=== PATIENT | female | born 1955 ===

== ENCOUNTER 2021-10-23 15:58 | Observation (INO) ==
[2021-10-23] MEDS ORDERED: GLUCAGON 1 MG VIAL IM PRN ×2 (18:38)
[2021-10-23] MEDS ORDERED: ONDANSETRON 4 MG/2 ML VIAL IV PRN (18:38)
[2021-10-23] MEDS ORDERED: DEXTROSE 50% 25 GM/50 ML VIAL IV PRN (18:38)
[2021-10-23] MEDS ORDERED: DEXTROSE 10% 250 ML BAG IV PRN (20:33)
[2021-10-23] MEDS: INSULIN NPH/REGULAR 70/30 100 UNIT/ML SUBCUT SCH (23:42)
[2021-10-24] MEDS: FERROUS SULFATE 325 MG TABLET PO SCH ×3 (00:06→21:29)
[2021-10-24] MEDS: ENOXAPARIN 40 MG/0.4 ML SYRINGE SUBCUT SCH ×2 (00:06→21:30)
[2021-10-24] MEDS: SODIUM CHLORIDE 0.9% 1,000 ML IV SCH ×3 (00:06→18:49)
[2021-10-24] MEDS: SIMVASTATIN 10 MG TABLET PO SCH ×2 (00:06→21:28)
[2021-10-24] MEDS: GABAPENTIN 400 MG CAPSULE PO SCH ×4 (00:06→21:29)
[2021-10-24] MEDS: CALCIUM (CARBONATE) 500 MG TABLET PO SCH ×3 (00:07→21:29)
[2021-10-24] MEDS: MUPIROCIN 2% OINT 22 GM TUBE TOP SCH ×3 (00:07→21:30)
[2021-10-24] MEDS: MONTELUKAST 10 MG TABLET PO SCH ×2 (00:07→21:29)
[2021-10-24 05:15] LABS: Basophils % 0.6 % (0.0-0.8); Eosinophils # 0.4 10*3/uL (0.0-0.87); Eosinophils % 5.5 % (0.00-10.9); Hematocrit 29.4 VOL% (35.7-47.0); Hemoglobin 9.6 GM/DL (12.0-16.0); Immature Granulocytes % 0.4 %; Immature Granulocytes Absolute 0.03 #; Lymphocytes # 1.5 10*3/uL (1.4-4.0); Lymphocytes % 22.3 % (21.3-54.2); Mean Corpuscular HGB Conc 32.7 GM/DL (32-36); Mean Corpuscular Volume 95.5 FL (87-102); Mean Platelet Volume 10.3 FL (9.6-12.0); Monocytes % 10.5 % (1.7-12.7); Neutrophils % 60.7 % (38.7-73.9); Platelet Count 207 T/CUMM (130-400); Red Blood Count 3.08 MC/CUMM (3.8-5.5); Red Cell Distribution Width 11.6 % (9.3-17.3); White Blood Count 6.9 T/CUMM (4-12)
[2021-10-24 05:55] LABS: Alanine Aminotransferase 22 U/L (13-56); Albumin 2.7 G/DL (3.4-5.0); Alkaline Phosphatase 93 U/L (45-117); Aspartate Amino Transferase 17 U/L (0-37); Bilirubin,Total < 0.39 MG/DL (0.20-1.00); Blood Urea Nitrogen 20 MG/DL (7-18); Calcium 8.2 MG/DL (8.5-10.1); Carbon Dioxide 26 MMOL/L (21-32); Estimated Glom Filtration Rate 60 ML/MIN; Glucose 177 MG/DL (74-106); HDL Cholesterol 49 MG/DL (40-60); Osmolality,Calculated 274.2 MOS/KG (273-304); Potassium 5.9 MMOL/L (3.5-5.1); Risk Ratio 2.53; Sodium 134 MMOL/L (136-145); Triglycerides 110 MG/DL (2-150)
[2021-10-24] MEDS: LEVOTHYROXINE 25 MCG TABLET PO SCH (06:07)
[2021-10-24] MEDS ORDERED: SODIUM POLYSTYRENE SULFATE 15 GM/60 ML BOTTLE PO ONE ×2 (08:27→16:30)
[2021-10-24] MEDS ORDERED: ERGOCALCIFEROL 50,000 UNIT CAPSULE PO SCH (09:00)
[2021-10-24] MEDS ORDERED: LOSARTAN 50 MG TABLET PO SCH (09:00)
[2021-10-24] MEDS ORDERED: amLODIPine 2.5 MG TABLET PO SCH (09:00)
[2021-10-24] MEDS ORDERED: SPIRONOLACTONE 25 MG TABLET PO SCH (09:00)
[2021-10-24] MEDS ORDERED: FUROSEMIDE 40 MG TABLET PO SCH (09:00)
[2021-10-24] MEDS ORDERED: DULoxetine 30 MG CAPSULE PO SCH (09:00)
[2021-10-24] MEDS ORDERED: glipiZIDE 5 MG TABLET PO SCH (09:00)
[2021-10-24] MEDS: MULTIVITAMIN (CENTRUM) TABLET PO SCH (10:36)
[2021-10-24] MEDS: ASPIRIN EC 81 MG TABLET PO SCH (10:36)
[2021-10-24] MEDS: DOXAZOSIN 1 MG TABLET PO SCH (10:37)
[2021-10-24] MEDS: HYDROXYCHLOROQUINE 200 MG TABLET PO SCH (10:37)
[2021-10-24] MEDS: CLOPIDOGREL 75 MG TABLET PO SCH (10:37)
[2021-10-24] MEDS: OMEGA 3 ACID ETHYL ESTERS 1 GM CAPSULE PO SCH (10:45)
[2021-10-24] MEDS: INSULIN NPH/REGULAR 70/30 100 UNIT/ML SUBCUT SCH (10:58)
[2021-10-24] MEDS ORDERED: hydrALAZINE 20 MG/1 ML VIAL IV PRN (11:13)
[2021-10-24 11:17] LABS: % Iron Saturation 24.7 % (18-50)
[2021-10-24] MEDS: INSULIN LISPRO 100 UNIT/ML SUBCUT SCH ×3 (12:38→21:30)
[2021-10-24] MEDS: PANTOPRAZOLE 40 MG TABLET PO SCH (15:38)
[2021-10-24] MEDS ORDERED: INSULIN NPH/REGULAR 70/30 100 UNIT/ML SUBCUT SCH (17:00)
[2021-10-25] MEDS: LEVOTHYROXINE 25 MCG TABLET PO SCH (05:29)
[2021-10-25 05:41] LABS: Basophils % 0.5 % (0.0-0.8); Eosinophils # 0.4 10*3/uL (0.0-0.87); Eosinophils % 4.6 % (0.00-10.9); Hematocrit 29.6 VOL% (35.7-47.0); Hemoglobin 9.8 GM/DL (12.0-16.0); Immature Granulocytes % 0.2 %; Immature Granulocytes Absolute 0.02 #; Lymphocytes # 1.4 10*3/uL (1.4-4.0); Lymphocytes % 17.1 % (21.3-54.2); Mean Corpuscular HGB Conc 33.1 GM/DL (32-36); Mean Corpuscular Volume 94.3 FL (87-102); Mean Platelet Volume 9.6 FL (9.6-12.0); Monocytes % 9.7 % (1.7-12.7); Neutrophils % 67.9 % (38.7-73.9); Platelet Count 239 T/CUMM (130-400); Red Blood Count 3.14 MC/CUMM (3.8-5.5); Red Cell Distribution Width 11.6 % (9.3-17.3); White Blood Count 8.4 T/CUMM (4-12)
[2021-10-25 05:56] LABS: Bilirubin,Total 0.4 MG/DL (0.20-1.00); Calcium 8.1 MG/DL (8.5-10.1); Osmolality,Calculated 275.1 MOS/KG (273-304); Total Protein 6.3 G/DL (6.4-8.2)
[2021-10-25 06:03] LABS: Ferritin 215.5 ng/mL (8-252)
[2021-10-25] MEDS: INSULIN LISPRO 100 UNIT/ML SUBCUT SCH ×4 (07:30→21:22)
[2021-10-25] MEDS: SODIUM CHLORIDE 0.9% 1,000 ML IV SCH ×2 (07:35→21:24)
[2021-10-25] MEDS: MUPIROCIN 2% OINT 22 GM TUBE TOP SCH ×3 (09:00→21:23)
[2021-10-25] MEDS ORDERED: PNEUMOCOCCAL VACCINE (13 VALENT) 0.5 ML SYRINGE IM ONE (09:00)
[2021-10-25] MEDS: FERROUS SULFATE 325 MG TABLET PO SCH ×2 (13:09→21:19)
[2021-10-25] MEDS: CALCIUM (CARBONATE) 500 MG TABLET PO SCH ×2 (13:09→21:19)
[2021-10-25] MEDS: GABAPENTIN 400 MG CAPSULE PO SCH ×3 (13:09→21:19)
[2021-10-25] MEDS ORDERED: MORPHINE 4 MG/1 ML VIAL IV PRN (15:16)
[2021-10-25] MEDS: PANTOPRAZOLE 40 MG TABLET PO SCH (15:30)
[2021-10-25] MEDS: CLOPIDOGREL 75 MG TABLET PO SCH (15:30)
[2021-10-25] MEDS: ASPIRIN EC 81 MG TABLET PO SCH (15:30)
[2021-10-25] MEDS: HYDROXYCHLOROQUINE 200 MG TABLET PO SCH (15:30)
[2021-10-25] MEDS: amLODIPine 5 MG TABLET PO SCH (15:30)
[2021-10-25] MEDS: OMEGA 3 ACID ETHYL ESTERS 1 GM CAPSULE PO SCH (15:30)
[2021-10-25] MEDS: MULTIVITAMIN (CENTRUM) TABLET PO SCH (15:30)
[2021-10-25] MEDS: DOXAZOSIN 1 MG TABLET PO SCH (15:30)
[2021-10-25] MEDS: SIMVASTATIN 10 MG TABLET PO SCH (21:19)
[2021-10-25] MEDS: ENOXAPARIN 40 MG/0.4 ML SYRINGE SUBCUT SCH (21:20)
[2021-10-25] MEDS: DULoxetine 30 MG CAPSULE PO SCH (21:20)
[2021-10-25] MEDS: MONTELUKAST 10 MG TABLET PO SCH (21:20)
[2021-10-26 05:15] LABS: Basophils % 0.2 % (0.0-0.8); Eosinophils # 0.1 10*3/uL (0.0-0.87); Eosinophils % 0.6 % (0.00-10.9); Hematocrit 29.9 VOL% (35.7-47.0); Hemoglobin 9.7 GM/DL (12.0-16.0); Immature Granulocytes % 0.5 %; Immature Granulocytes Absolute 0.05 #; Lymphocytes # 1.1 10*3/uL (1.4-4.0); Lymphocytes % 11.5 % (21.3-54.2); Mean Corpuscular HGB Conc 32.4 GM/DL (32-36); Mean Corpuscular Volume 94.9 FL (87-102); Monocytes % 8.4 % (1.7-12.7); Neutrophils % 78.8 % (38.7-73.9); Platelet Count 228 T/CUMM (130-400); Red Blood Count 3.15 MC/CUMM (3.8-5.5); Red Cell Distribution Width 11.4 % (9.3-17.3); White Blood Count 9.5 T/CUMM (4-12)
[2021-10-26] MEDS: LEVOTHYROXINE 25 MCG TABLET PO SCH (05:40)
[2021-10-26 05:50] LABS: Calcium 7.9 MG/DL (8.5-10.1); Osmolality,Calculated 274.1 MOS/KG (273-304); Potassium 4.3 MMOL/L (3.5-5.1)
[2021-10-26] MEDS ORDERED: MAGNESIUM SULF RIDER 2 GM/50 ML PREMIX IV ONE (07:41)
[2021-10-26] MEDS: INSULIN LISPRO 100 UNIT/ML SUBCUT SCH ×4 (09:44→20:55)
[2021-10-26] MEDS: MULTIVITAMIN (CENTRUM) TABLET PO SCH (12:57)
[2021-10-26] MEDS: HYDROXYCHLOROQUINE 200 MG TABLET PO SCH (12:58)
[2021-10-26] MEDS: amLODIPine 5 MG TABLET PO SCH (12:58)
[2021-10-26] MEDS: CALCIUM (CARBONATE) 500 MG TABLET PO SCH ×2 (12:58→20:53)
[2021-10-26] MEDS: OMEGA 3 ACID ETHYL ESTERS 1 GM CAPSULE PO SCH (12:58)
[2021-10-26] MEDS: GABAPENTIN 400 MG CAPSULE PO SCH ×3 (12:58→20:53)
[2021-10-26] MEDS: DOXAZOSIN 1 MG TABLET PO SCH (12:59)
[2021-10-26] MEDS: FERROUS SULFATE 325 MG TABLET PO SCH ×2 (13:01→20:53)
[2021-10-26] MEDS: MUPIROCIN 2% OINT 22 GM TUBE TOP SCH ×3 (13:02→21:50)
[2021-10-26] MEDS: CLOPIDOGREL 75 MG TABLET PO SCH (13:03)
[2021-10-26] MEDS: ASPIRIN EC 81 MG TABLET PO SCH (13:04)
[2021-10-26] MEDS: PANTOPRAZOLE 40 MG TABLET PO SCH (15:33)
[2021-10-26] MEDS: SIMVASTATIN 10 MG TABLET PO SCH (20:53)
[2021-10-26] MEDS: DULoxetine 30 MG CAPSULE PO SCH (20:53)
[2021-10-26] MEDS: MONTELUKAST 10 MG TABLET PO SCH (20:53)
[2021-10-26] MEDS: ENOXAPARIN 40 MG/0.4 ML SYRINGE SUBCUT SCH (20:54)
[2021-10-26] MEDS ORDERED: INSULIN GLARGINE 100 UNIT/ML SUBCUT SCH (21:00)
[2021-10-26] MEDS: ACETAMINOPHEN 325 MG TABLET PO PRN (21:02)
[2021-10-27] MEDS: LEVOTHYROXINE 25 MCG TABLET PO SCH (05:53)
[2021-10-27] MEDS: ACETAMINOPHEN 325 MG TABLET PO PRN (05:53)
[2021-10-27] MEDS: INSULIN LISPRO 100 UNIT/ML SUBCUT SCH ×2 (09:22→12:24)
[2021-10-27] MEDS: DOXAZOSIN 1 MG TABLET PO SCH (09:23)
[2021-10-27] MEDS: MULTIVITAMIN (CENTRUM) TABLET PO SCH (09:23)
[2021-10-27] MEDS: amLODIPine 5 MG TABLET PO SCH (09:24)
[2021-10-27] MEDS: FERROUS SULFATE 325 MG TABLET PO SCH (09:24)
[2021-10-27] MEDS: GABAPENTIN 400 MG CAPSULE PO SCH (09:24)
[2021-10-27] MEDS: ASPIRIN EC 81 MG TABLET PO SCH (09:24)
[2021-10-27 09:41] LABS: Calcium 8.2 MG/DL (8.5-10.1); Osmolality,Calculated 270.7 MOS/KG (273-304); Potassium 4.8 MMOL/L (3.5-5.1)
[2021-10-27] MEDS: OMEGA 3 ACID ETHYL ESTERS 1 GM CAPSULE PO SCH (09:42)
[2021-10-27] MEDS: CLOPIDOGREL 75 MG TABLET PO SCH (09:42)
[2021-10-27] MEDS: CALCIUM (CARBONATE) 500 MG TABLET PO SCH (09:42)
[2021-10-27] MEDS: HYDROXYCHLOROQUINE 200 MG TABLET PO SCH (09:43)
[2021-10-27 12:44] VITALS: BP 144/52
== END 2021-10-27 14:48 | disposition home or self-care (01) ==
LOC: N.ED 15:58 → N.EDINP 15:58 → SUATTDRO 18:38 → N.5E 20:52
PROVIDERS: ADMIT Internal Medicine; ATTEND Phlebology

== ENCOUNTER 2021-11-01 13:22 | Inpatient (IN) ==
[2021-11-01] MEDS ORDERED: PIPERACILLIN/TAZOBACTAM 3,375 MG in SODIUM CHLORIDE 0.9% 100 ML IV STA (15:01)
[2021-11-01] MEDS ORDERED: VANCOMYCIN INJ 1,000 MG in SODIUM CHLORIDE 0.9% 250 ML IV STA (15:09)
[2021-11-01 16:04] LABS: Basophils # 0.1 10*3/uL (0.0-0.2); Basophils % 0.6 % (0.0-0.8); Eosinophils # 0.4 10*3/uL (0.0-0.87); Eosinophils % 4.6 % (0.00-10.9); Hematocrit 29.6 VOL% (35.7-47.0); Hemoglobin 9.7 GM/DL (12.0-16.0); Immature Granulocytes % 0.5 %; Immature Granulocytes Absolute 0.04 #; Lymphocytes # 1.6 10*3/uL (1.4-4.0); Lymphocytes % 18.5 % (21.3-54.2); Mean Corpuscular HGB Conc 32.8 GM/DL (32-36); Mean Corpuscular Volume 95.5 FL (87-102); Mean Platelet Volume 9.8 FL (9.6-12.0); Monocytes % 7.6 % (1.7-12.7); Neutrophils % 68.2 % (38.7-73.9); Platelet Count 290 T/CUMM (130-400); Red Cell Distribution Width 11.7 % (9.3-17.3); White Blood Count 8.4 T/CUMM (4-12)
[2021-11-01] MEDS ORDERED: GLUCAGON 1 MG VIAL IM PRN (16:18)
[2021-11-01] MEDS ORDERED: DEXTROSE 10% 250 ML BAG IV PRN (16:20)
[2021-11-01] MEDS ORDERED: ACETAMINOPHEN 325 MG TABLET PO PRN (16:22)
[2021-11-01] MEDS ORDERED: DEXTROSE 50% 25 GM/50 ML VIAL IV PRN (16:22)
[2021-11-01] MEDS ORDERED: ONDANSETRON 4 MG/2 ML VIAL IV PRN (16:22)
[2021-11-01 16:26] LABS: Alanine Aminotransferase 25 U/L (13-56); Albumin 2.8 G/DL (3.4-5.0); Alkaline Phosphatase 114 U/L (45-117); Aspartate Amino Transferase 14 U/L (0-37); Bilirubin,Total < 0.39 MG/DL (0.20-1.00); Blood Urea Nitrogen 14 MG/DL (7-18); Calcium 8.3 MG/DL (8.5-10.1); Carbon Dioxide 27 MMOL/L (21-32); Estimated Glom Filtration Rate 60 ML/MIN; Glucose 150 MG/DL (74-106); Potassium 4.2 MMOL/L (3.5-5.1); Sodium 136 MMOL/L (136-145)
[2021-11-01 16:32] LABS: INR 0.9; PT Patient Result 10.7 SECS (10.5-12.0); Partial Thromboplastin Time 30.5 SECS (23.8-32.1)
[2021-11-01] MEDS: INSULIN REGULAR 100 UNIT/ML SUBCUT SCH ×2 (17:45→23:20)
[2021-11-01] MEDS: PIPERACILLIN/TAZOBACTAM 3,375 MG in SODIUM CHLORIDE 0.9% 100 ML IV SCH (23:20)
[2021-11-02] MEDS ORDERED: VANCOMYCIN INJ 1,500 MG in SODIUM CHLORIDE 0.9% 500 ML IV SCH ×2 (04:00→21:00)
[2021-11-02 05:03] LABS: Basophils % 0.5 % (0.0-0.8); Eosinophils # 0.5 10*3/uL (0.0-0.87); Eosinophils % 5.6 % (0.00-10.9); Hematocrit 28.3 VOL% (35.7-47.0); Hemoglobin 9.5 GM/DL (12.0-16.0); Immature Granulocytes % 0.4 %; Immature Granulocytes Absolute 0.03 #; Lymphocytes # 1.4 10*3/uL (1.4-4.0); Lymphocytes % 17.1 % (21.3-54.2); Mean Corpuscular HGB Conc 33.6 GM/DL (32-36); Mean Corpuscular Volume 94.6 FL (87-102); Mean Platelet Volume 9.9 FL (9.6-12.0); Monocytes % 9.7 % (1.7-12.7); Neutrophils % 66.7 % (38.7-73.9); Platelet Count 293 T/CUMM (130-400); Red Blood Count 2.99 MC/CUMM (3.8-5.5); Red Cell Distribution Width 11.6 % (9.3-17.3); White Blood Count 8.1 T/CUMM (4-12)
[2021-11-02 05:26] LABS: Albumin 2.6 G/DL (3.4-5.0); Bilirubin,Total 1.4 MG/DL (0.20-1.00); Calcium 8.4 MG/DL (8.5-10.1); Potassium 5.1 MMOL/L (3.5-5.1); Total Protein 6.5 G/DL (6.4-8.2)
[2021-11-02] MEDS ORDERED: LACTATED RINGERS 1,000 ML IV SCH (08:00)
[2021-11-02] MEDS ORDERED: propofoL 200 MG/20 ML VIAL IV ONE (08:08)
[2021-11-02] MEDS ORDERED: ETOMIDATE 40 MG/20 ML VIAL IV ONE (08:08)
[2021-11-02] MEDS ORDERED: LIDOCAINE 2% 5 ML VIAL ONE (08:08)
[2021-11-02] MEDS ORDERED: PHENYLEPHRINE 1 MG/10 ML SYRINGE IV ONE (08:08)
[2021-11-02] MEDS ORDERED: fentaNYL 100 MCG/2 ML VIAL ONE (08:08)
[2021-11-02] MEDS ORDERED: SEVOFLURANE 1 UNIT/15 MINUTE INH ONE (08:08)
[2021-11-02] MEDS ORDERED: ONDANSETRON 4 MG/2 ML VIAL ONE (08:09)
[2021-11-02] MEDS ORDERED: LIDOCAINE 1%/EPI INJ 20 ML VIAL ONE (08:16)
[2021-11-02] MEDS ORDERED: BUPIVACAINE MPF 0.25% 30 ML VIAL ONE (08:16)
[2021-11-02] MEDS: INSULIN REGULAR 100 UNIT/ML SUBCUT SCH ×4 (08:18→20:54)
[2021-11-02] MEDS ORDERED: ONDANSETRON 4 MG/2 ML VIAL IV PRN (09:15)
[2021-11-02] MEDS: HYDROmorphone 1 MG/1 ML SYRINGE IV PRN ×2 (09:15→09:20)
[2021-11-02] MEDS ORDERED: HYDROmorphone 1 MG/1 ML SYRINGE ONE (09:16)
[2021-11-02] MEDS ORDERED: HYDROmorphone 1 MG/1 ML SYRINGE IV PRN (10:51)
[2021-11-02] MEDS: PANTOPRAZOLE 40 MG TABLET PO SCH (11:29)
[2021-11-02] MEDS: PIPERACILLIN/TAZOBACTAM 3,375 MG in SODIUM CHLORIDE 0.9% 100 ML IV SCH ×3 (11:30→23:15)
[2021-11-02] MEDS ORDERED: SPIRONOLACTONE 25 MG TABLET PO SCH (11:30)
[2021-11-02] MEDS: DOXAZOSIN 1 MG TABLET PO SCH (13:35)
[2021-11-02] MEDS: amLODIPine 10 MG TABLET PO SCH (13:35)
[2021-11-02] MEDS: ASPIRIN EC 81 MG TABLET PO SCH (13:35)
[2021-11-02] MEDS: GABAPENTIN 400 MG CAPSULE PO SCH ×2 (16:34→20:53)
[2021-11-02] MEDS: HYDROXYCHLOROQUINE 200 MG TABLET PO SCH (16:34)
[2021-11-02] MEDS: OMEGA 3 ACID ETHYL ESTERS 1 GM CAPSULE PO SCH (16:34)
[2021-11-02] MEDS: FERROUS SULFATE 325 MG TABLET PO SCH (16:34)
[2021-11-02] MEDS: DOCUSATE SODIUM 100 MG CAPSULE PO SCH (16:34)
[2021-11-02] MEDS: MONTELUKAST 10 MG TABLET PO SCH (20:52)
[2021-11-02] MEDS: CALCIUM (CARBONATE) 500 MG TABLET PO SCH (20:52)
[2021-11-02] MEDS: SIMVASTATIN 10 MG TABLET PO SCH (20:53)
[2021-11-02] MEDS ORDERED: DULoxetine 30 MG CAPSULE PO SCH (21:00)
[2021-11-03] MEDS: INSULIN REGULAR 100 UNIT/ML SUBCUT SCH ×5 (01:45→20:28)
[2021-11-03] MEDS: LEVOTHYROXINE 25 MCG TABLET PO SCH (06:13)
[2021-11-03 06:28] LABS: Basophils % 0.5 % (0.0-0.8); Eosinophils # 0.5 10*3/uL (0.0-0.87); Eosinophils % 6.4 % (0.00-10.9); Hematocrit 29.2 VOL% (35.7-47.0); Hemoglobin 9.4 GM/DL (12.0-16.0); Immature Granulocytes % 0.6 %; Immature Granulocytes Absolute 0.05 #; Lymphocytes # 1.9 10*3/uL (1.4-4.0); Lymphocytes % 22.9 % (21.3-54.2); Mean Corpuscular HGB Conc 32.2 GM/DL (32-36); Mean Corpuscular Volume 96.1 FL (87-102); Mean Platelet Volume 9.8 FL (9.6-12.0); Monocytes % 11.8 % (1.7-12.7); Neutrophils % 57.8 % (38.7-73.9); Platelet Count 319 T/CUMM (130-400); Red Blood Count 3.04 MC/CUMM (3.8-5.5); Red Cell Distribution Width 11.7 % (9.3-17.3); White Blood Count 8.5 T/CUMM (4-12)
[2021-11-03 07:07] LABS: Albumin 2.8 G/DL (3.4-5.0); Bilirubin,Total 0.7 MG/DL (0.20-1.00); Calcium 8.6 MG/DL (8.5-10.1); Osmolality,Calculated 269.4 MOS/KG (273-304); Potassium 5.7 MMOL/L (3.5-5.1); Total Protein 6.9 G/DL (6.4-8.2)
[2021-11-03] MEDS: GABAPENTIN 400 MG CAPSULE PO SCH ×3 (08:35→20:28)
[2021-11-03] MEDS: MULTIVITAMIN (CENTRUM) TABLET PO SCH (08:35)
[2021-11-03] MEDS: ASPIRIN EC 81 MG TABLET PO SCH (08:35)
[2021-11-03] MEDS: CALCIUM (CARBONATE) 500 MG TABLET PO SCH ×2 (08:35→20:28)
[2021-11-03] MEDS: DOXAZOSIN 1 MG TABLET PO SCH (08:35)
[2021-11-03] MEDS: FERROUS SULFATE 325 MG TABLET PO SCH ×2 (08:36→17:55)
[2021-11-03] MEDS: PANTOPRAZOLE 40 MG TABLET PO SCH (08:36)
[2021-11-03] MEDS: HYDROXYCHLOROQUINE 200 MG TABLET PO SCH (08:36)
[2021-11-03] MEDS: DOCUSATE SODIUM 100 MG CAPSULE PO SCH (08:36)
[2021-11-03] MEDS: CLOPIDOGREL 75 MG TABLET PO SCH (08:36)
[2021-11-03] MEDS: amLODIPine 10 MG TABLET PO SCH (08:36)
[2021-11-03] MEDS: PIPERACILLIN/TAZOBACTAM 3,375 MG in SODIUM CHLORIDE 0.9% 100 ML IV SCH (08:37)
[2021-11-03] MEDS: OMEGA 3 ACID ETHYL ESTERS 1 GM CAPSULE PO SCH (08:41)
[2021-11-03] MEDS ORDERED: FUROSEMIDE 40 MG TABLET PO SCH (09:00)
[2021-11-03] MEDS ORDERED: SODIUM POLYSTYRENE SULFATE 15 GM/60 ML BOTTLE PO STA (10:31)
[2021-11-03] MEDS: SODIUM CHLORIDE 0.9% 1,000 ML IV SCH (13:45)
[2021-11-03] MEDS: POLYETHYLENE GLYCOL POWDER 17 GM PACK PO SCH (13:45)
[2021-11-03] MEDS: cefTRIAXone 1,000 MG in SODIUM CHLORIDE 0.9% 100 ML IV SCH (13:45)
[2021-11-03] MEDS: LINEZOLID INJ 600 MG/300 ML PREMIX IV SCH ×2 (16:54→23:49)
[2021-11-03] MEDS: SIMVASTATIN 10 MG TABLET PO SCH (20:29)
[2021-11-03] MEDS: MONTELUKAST 10 MG TABLET PO SCH (20:29)
[2021-11-04 04:46] LABS: Basophils % 0.3 % (0.0-0.8); Eosinophils # 0.4 10*3/uL (0.0-0.87); Eosinophils % 6.7 % (0.00-10.9); Hematocrit 26.4 VOL% (35.7-47.0); Hemoglobin 8.7 GM/DL (12.0-16.0); Immature Granulocytes % 0.8 %; Immature Granulocytes Absolute 0.05 #; Lymphocytes % 16.9 % (21.3-54.2); Mean Corpuscular Volume 94.6 FL (87-102); Mean Platelet Volume 9.8 FL (9.6-12.0); Monocytes % 8.9 % (1.7-12.7); Neutrophils % 66.4 % (38.7-73.9); Platelet Count 278 T/CUMM (130-400); Red Blood Count 2.79 MC/CUMM (3.8-5.5); Red Cell Distribution Width 11.3 % (9.3-17.3); White Blood Count 6.2 T/CUMM (4-12)
[2021-11-04 05:08] LABS: Albumin 2.5 G/DL (3.4-5.0); Bilirubin,Total 0.5 MG/DL (0.20-1.00); Calcium 8.3 MG/DL (8.5-10.1); Osmolality,Calculated 274.5 MOS/KG (273-304); Potassium 4.5 MMOL/L (3.5-5.1); Total Protein 6.4 G/DL (6.4-8.2)
[2021-11-04] MEDS: LEVOTHYROXINE 25 MCG TABLET PO SCH (06:10)
[2021-11-04] MEDS: ASPIRIN EC 81 MG TABLET PO SCH (08:58)
[2021-11-04] MEDS: CALCIUM (CARBONATE) 500 MG TABLET PO SCH ×2 (08:58→21:29)
[2021-11-04] MEDS: DOXAZOSIN 1 MG TABLET PO SCH (08:58)
[2021-11-04] MEDS: amLODIPine 10 MG TABLET PO SCH (08:58)
[2021-11-04] MEDS: OMEGA 3 ACID ETHYL ESTERS 1 GM CAPSULE PO SCH (08:59)
[2021-11-04] MEDS: DOCUSATE SODIUM 100 MG CAPSULE PO SCH (08:59)
[2021-11-04] MEDS: MULTIVITAMIN (CENTRUM) TABLET PO SCH (08:59)
[2021-11-04] MEDS: PANTOPRAZOLE 40 MG TABLET PO SCH (08:59)
[2021-11-04] MEDS: CLOPIDOGREL 75 MG TABLET PO SCH (08:59)
[2021-11-04] MEDS: GABAPENTIN 400 MG CAPSULE PO SCH ×3 (08:59→21:29)
[2021-11-04] MEDS: POLYETHYLENE GLYCOL POWDER 17 GM PACK PO SCH (08:59)
[2021-11-04] MEDS: FERROUS SULFATE 325 MG TABLET PO SCH ×2 (08:59→17:38)
[2021-11-04] MEDS: HYDROXYCHLOROQUINE 200 MG TABLET PO SCH (08:59)
[2021-11-04] MEDS: INSULIN REGULAR 100 UNIT/ML SUBCUT SCH ×4 (09:02→21:30)
[2021-11-04] MEDS: cefTRIAXone 1,000 MG in SODIUM CHLORIDE 0.9% 100 ML IV SCH (10:08)
[2021-11-04] MEDS: LINEZOLID INJ 600 MG/300 ML PREMIX IV SCH (14:12)
[2021-11-04] MEDS: SODIUM CHLORIDE 0.9% 1,000 ML IV SCH ×2 (14:13→14:14)
[2021-11-04] MEDS: SIMVASTATIN 10 MG TABLET PO SCH (21:29)
[2021-11-04] MEDS: MONTELUKAST 10 MG TABLET PO SCH (21:29)
[2021-11-05] MEDS: LINEZOLID INJ 600 MG/300 ML PREMIX IV SCH (00:14)
[2021-11-05] MEDS: SODIUM CHLORIDE 0.9% 1,000 ML IV SCH ×3 (00:15→16:54)
[2021-11-05] MEDS: LEVOTHYROXINE 25 MCG TABLET PO SCH (05:49)
[2021-11-05 06:57] LABS: Basophils % 0.5 % (0.0-0.8); Eosinophils # 0.4 10*3/uL (0.0-0.87); Hematocrit 28.3 VOL% (35.7-47.0); Hemoglobin 9.6 GM/DL (12.0-16.0); Immature Granulocytes % 1.3 %; Immature Granulocytes Absolute 0.08 #; Lymphocytes # 1.7 10*3/uL (1.4-4.0); Lymphocytes % 26.3 % (21.3-54.2); Mean Corpuscular HGB Conc 33.9 GM/DL (32-36); Monocytes % 8.9 % (1.7-12.7); Platelet Count 297 T/CUMM (130-400); Red Blood Count 3.01 MC/CUMM (3.8-5.5); Red Cell Distribution Width 11.5 % (9.3-17.3); White Blood Count 6.3 T/CUMM (4-12)
[2021-11-05 07:14] LABS: Alanine Aminotransferase 20 U/L (13-56); Albumin 2.8 G/DL (3.4-5.0); Alkaline Phosphatase 121 U/L (45-117); Aspartate Amino Transferase 16 U/L (0-37); Bilirubin,Total < 0.39 MG/DL (0.20-1.00); Blood Urea Nitrogen 10 MG/DL (7-18); Calcium 8.6 MG/DL (8.5-10.1); Carbon Dioxide 23 MMOL/L (21-32); Estimated Glom Filtration Rate 54 ML/MIN; Glucose 262 MG/DL (74-106); Osmolality,Calculated 275.2 MOS/KG (273-304); Potassium 4.8 MMOL/L (3.5-5.1); Sodium 134 MMOL/L (136-145); Total Protein 7.2 G/DL (6.4-8.2)
[2021-11-05] MEDS: ASPIRIN EC 81 MG TABLET PO SCH (08:34)
[2021-11-05] MEDS: amLODIPine 10 MG TABLET PO SCH (08:34)
[2021-11-05] MEDS: DOXAZOSIN 1 MG TABLET PO SCH (08:34)
[2021-11-05] MEDS: CALCIUM (CARBONATE) 500 MG TABLET PO SCH (08:34)
[2021-11-05] MEDS: HYDROXYCHLOROQUINE 200 MG TABLET PO SCH (08:34)
[2021-11-05] MEDS: OMEGA 3 ACID ETHYL ESTERS 1 GM CAPSULE PO SCH (08:34)
[2021-11-05] MEDS: GABAPENTIN 400 MG CAPSULE PO SCH ×2 (08:34→16:54)
[2021-11-05] MEDS: MULTIVITAMIN (CENTRUM) TABLET PO SCH (08:34)
[2021-11-05] MEDS: INSULIN REGULAR 100 UNIT/ML SUBCUT SCH ×3 (08:34→16:53)
[2021-11-05] MEDS: CLOPIDOGREL 75 MG TABLET PO SCH (08:35)
[2021-11-05] MEDS: PANTOPRAZOLE 40 MG TABLET PO SCH (08:35)
[2021-11-05] MEDS: FERROUS SULFATE 325 MG TABLET PO SCH ×2 (08:35→16:54)
[2021-11-05] MEDS: DOCUSATE SODIUM 100 MG CAPSULE PO SCH (08:35)
[2021-11-05] MEDS: POLYETHYLENE GLYCOL POWDER 17 GM PACK PO SCH (10:37)
[2021-11-05] MEDS ORDERED: LINEZOLID 600 MG TABLET PO SCH (11:00)
[2021-11-05] MEDS: cefTRIAXone 1,000 MG in SODIUM CHLORIDE 0.9% 100 ML IV SCH (13:12)
[2021-11-05 16:24] VITALS: BP 144/79
== END 2021-11-05 18:55 | disposition home or self-care (01) | DRG 638 ==
LOC: SUATTDRO → N.ED 13:22 → N.EDINP 13:22 → SUATTDRO 16:22 → N.5E 18:25
PROVIDERS: ADMIT Internal Medicine; ATTEND Internal Medicine

== ENCOUNTER 2022-05-07 19:27 | Inpatient (IN) ==
[2022-05-07 21:07] LABS: Basophils # 0.1 10*3/uL (0.0-0.2); Basophils % 1.4 % (0.0-0.8); Eosinophils # 0.1 10*3/uL (0.0-0.87); Eosinophils % 2.5 % (0.00-10.9); Hematocrit 32.9 VOL% (35.7-47.0); Hemoglobin 11.3 GM/DL (12.0-16.0); Immature Granulocytes % 0.2 %; Immature Granulocytes Absolute 0.01 #; Lymphocytes # 1.9 10*3/uL (1.4-4.0); Lymphocytes % 39.3 % (21.3-54.2); Mean Corpuscular HGB Conc 34.3 GM/DL (32-36); Mean Corpuscular Volume 95.4 FL (87-102); Mean Platelet Volume 10.2 FL (9.6-12.0); Monocytes # 0.4 10*3/uL (0.11-0.8); Monocytes % 8.7 % (1.7-12.7); Neutrophils % 47.9 % (38.7-73.9); Platelet Count 191 T/CUMM (130-400); Red Blood Count 3.45 MC/CUMM (3.8-5.5); Red Cell Distribution Width 20.5 % (9.3-17.3); White Blood Count 4.8 T/CUMM (4-12)
[2022-05-07 21:17] LABS: INR 1.3; PT Patient Result 14.3 SECS (10.1-12.1); Partial Thromboplastin Time 29.9 SECS (23.7-32.9)
[2022-05-07 21:33] LABS: Albumin 1.8 G/DL (3.4-5.0); Bilirubin,Total 2.6 MG/DL (0.20-1.00); Calcium 8.4 MG/DL (8.5-10.1); Osmolality,Calculated 277.7 MOS/KG (273-304); Potassium 4.1 MMOL/L (3.5-5.1); Total Protein 4.7 G/DL (6.4-8.2)
[2022-05-07 22:37] LABS: Bacteria,Urine Many /HPF (Few); Hyaline Casts,Urine 35 /LPF (0-3); Mucus,Urine Occasional /LPF (Occasional)
[2022-05-07 22:38] LABS: Bilirubin,Urine Large mg/dL (Negative); Blood, Urine Trace mg/dL (Negative); Glucose,Urine (UA) Negative (Negative); Ketones,Urine 15 mg/dL (Negative); Nitrite,Urine Negative (Negative); Protein,Urine 100 mg/dL (Negative); Urine Appearance Slightly Cloudy (Clear); Urine Color Orange (Yellow); Urine Specific Gravity >= 1.030 (1.001-1.035); Urine pH 5.5 (4.5-8.0)
[2022-05-07] MEDS ORDERED: cefTRIAXone 1,000 MG in SODIUM CHLORIDE 0.9% 100 ML IV STA (22:52)
[2022-05-07] MEDS ORDERED: cefTRIAXone 1,000 MG VIAL ONE (22:53)
[2022-05-07] MEDS ORDERED: ACETAMINOPHEN 500 MG TABLET ONE (22:53)
[2022-05-07] MEDS ORDERED: ENOXAPARIN 30 MG/0.3 ML SYRINGE SUBCUT STA (22:54)
[2022-05-07] MEDS ORDERED: ACETAMINOPHEN 500 MG TABLET PO STA (22:54)
[2022-05-07] MEDS ORDERED: NICOTINE 21 MG/24 HR PATCH TRANSDERM PRN (23:42)
[2022-05-07] MEDS ORDERED: ZALEPLON 5 MG CAPSULE PO PRN (23:42)
[2022-05-07] MEDS ORDERED: guaiFENesin/DM ER 600-30 MG TABLET PO PRN (23:42)
[2022-05-07] MEDS ORDERED: ACETAMINOPHEN 325 MG TABLET PO PRN (23:42)
[2022-05-07] MEDS ORDERED: hydrALAZINE 20 MG/1 ML VIAL IV PRN (23:42)
[2022-05-07] MEDS ORDERED: diphenhydrAMINE CAP 25 MG CAPSULE PO PRN (23:42)
[2022-05-08] MEDS ORDERED: ENOXAPARIN 80 MG/0.8 ML SYRINGE SUBCUT ONE (01:30)
[2022-05-08 04:28] LABS: Basophils % 0.7 % (0.0-0.8); Eosinophils # 0.2 10*3/uL (0.0-0.87); Eosinophils % 5.3 % (0.00-10.9); Hematocrit 29.9 VOL% (35.7-47.0); Hemoglobin 10.2 GM/DL (12.0-16.0); Immature Granulocytes % 0.2 %; Immature Granulocytes Absolute 0.01 #; Lymphocytes # 1.6 10*3/uL (1.4-4.0); Lymphocytes % 38.5 % (21.3-54.2); Mean Corpuscular HGB Conc 34.1 GM/DL (32-36); Mean Corpuscular Volume 94.6 FL (87-102); Mean Platelet Volume 10.9 FL (9.6-12.0); Monocytes # 0.5 10*3/uL (0.11-0.8); Monocytes % 11.2 % (1.7-12.7); Neutrophils % 44.1 % (38.7-73.9); Platelet Count 193 T/CUMM (130-400); Red Blood Count 3.16 MC/CUMM (3.8-5.5); Red Cell Distribution Width 20.4 % (9.3-17.3); White Blood Count 4.2 T/CUMM (4-12)
[2022-05-08 05:02] LABS: Calcium 8.5 MG/DL (8.5-10.1); Osmolality,Calculated 275.7 MOS/KG (273-304); Potassium 3.8 MMOL/L (3.5-5.1); Thyroid Stimulating Hormone 2.96 uIU/ml (0.358-3.74)
[2022-05-08 05:29] LABS: Hepatitis B Core IgM Quant 0.15 Index; Hepatitis B Surface Ag Quant < 0.10 Index; Hepatitis B Surface Ag Result Non-Reactive (NonReactive); Hepatitis C Virus Ab Quant 0.12 Index; Hepatitis C Virus Ab Result Non-Reactive (NonReactive)
[2022-05-08] MEDS: PANTOPRAZOLE 40 MG TABLET PO SCH (09:06)
[2022-05-08] MEDS: LACTATED RINGERS 1,000 ML IV SCH (10:00)
[2022-05-08] MEDS ORDERED: INFLUENZA VIRUS VACCINE 0.5 ML SYRINGE IM ONE (11:45)
[2022-05-08] MEDS ORDERED: GLUCAGON 1 MG VIAL IM PRN (12:48)
[2022-05-08] MEDS ORDERED: DEXTROSE 10% 250 ML BAG IV PRN (12:48)
[2022-05-08] MEDS: INSULIN LISPRO 100 UNIT/ML SUBCUT SCH ×2 (20:00→21:35)
[2022-05-08] MEDS: cefTRIAXone 1,000 MG in SODIUM CHLORIDE 0.9% 100 ML IV SCH (23:33)
[2022-05-08] MEDS: ENOXAPARIN 40 MG/0.4 ML SYRINGE SUBCUT SCH (23:33)
[2022-05-09] MEDS: LACTATED RINGERS 1,000 ML IV SCH ×2 (00:07→13:56)
[2022-05-09] MEDS: ONDANSETRON 4 MG/2 ML VIAL IV PRN ×2 (03:48→12:48)
[2022-05-09 05:55] LABS: Basophils # 0.1 10*3/uL (0.0-0.2); Basophils % 1.4 % (0.0-0.8); Eosinophils # 0.2 10*3/uL (0.0-0.87); Hematocrit 32.3 VOL% (35.7-47.0); Hemoglobin 11.1 GM/DL (12.0-16.0); Lymphocytes % 27.4 % (21.3-54.2); Mean Corpuscular HGB Conc 34.4 GM/DL (32-36); Mean Corpuscular Volume 94.7 FL (87-102); Mean Platelet Volume 10.7 FL (9.6-12.0); Monocytes # 0.4 10*3/uL (0.11-0.8); Monocytes % 11.6 % (1.7-12.7); Neutrophils % 54.6 % (38.7-73.9); Platelet Count 188 T/CUMM (130-400); Red Blood Count 3.41 MC/CUMM (3.8-5.5); Red Cell Distribution Width 20.8 % (9.3-17.3); White Blood Count 3.6 T/CUMM (4-12)
[2022-05-09 06:12] LABS: Albumin 1.4 G/DL (3.4-5.0); Calcium 8.3 MG/DL (8.5-10.1); Osmolality,Calculated 276.7 MOS/KG (273-304); Potassium 4.5 MMOL/L (3.5-5.1); Total Protein 4.5 G/DL (6.4-8.2)
[2022-05-09] MEDS: INSULIN LISPRO 100 UNIT/ML SUBCUT SCH ×4 (08:40→20:55)
[2022-05-09] MEDS: PANTOPRAZOLE 40 MG TABLET PO SCH (08:43)
[2022-05-09] MEDS: PANTOPRAZOLE 40 MG VIAL IV SCH ×2 (09:40→20:56)
[2022-05-09] MEDS: cefTRIAXone 1,000 MG in SODIUM CHLORIDE 0.9% 100 ML IV SCH (23:08)
[2022-05-10] MEDS: LACTATED RINGERS 1,000 ML IV SCH ×3 (01:41→14:25)
[2022-05-10 05:57] LABS: Albumin 1.4 G/DL (3.4-5.0); Bilirubin,Total 1.9 MG/DL (0.20-1.00); Calcium 8.2 MG/DL (8.5-10.1); Osmolality,Calculated 277.5 MOS/KG (273-304); Potassium 4.1 MMOL/L (3.5-5.1)
[2022-05-10 06:46] LABS: Basophils # 0.1 10*3/uL (0.0-0.2); Basophils % 1.5 % (0.0-0.8); Eosinophils # 0.3 10*3/uL (0.0-0.87); Eosinophils % 7.4 % (0.00-10.9); Hemoglobin 10.7 GM/DL (12.0-16.0); Lymphocytes # 1.6 10*3/uL (1.4-4.0); Lymphocytes % 39.9 % (21.3-54.2); Mean Corpuscular HGB Conc 34.5 GM/DL (32-36); Mean Corpuscular Volume 95.4 FL (87-102); Mean Platelet Volume 10.3 FL (9.6-12.0); Monocytes # 0.4 10*3/uL (0.11-0.8); Monocytes % 10.2 % (1.7-12.7); Platelet Count 180 T/CUMM (130-400); Red Blood Count 3.25 MC/CUMM (3.8-5.5); Red Cell Distribution Width 20.7 % (9.3-17.3); White Blood Count 3.9 T/CUMM (4-12)
[2022-05-10] MEDS: INSULIN LISPRO 100 UNIT/ML SUBCUT SCH ×4 (10:33→20:07)
[2022-05-10] MEDS: COLESTIPOL 1 GM TABLET PO SCH ×2 (10:48→21:10)
[2022-05-10] MEDS: ASPIRIN EC 81 MG TABLET PO SCH (10:48)
[2022-05-10] MEDS: CLOPIDOGREL 75 MG TABLET PO SCH (10:48)
[2022-05-10] MEDS: MEROPENEM 500 MG in SODIUM CHLORIDE 0.9% 100 ML IV SCH ×3 (10:51→21:11)
[2022-05-10] MEDS: PANTOPRAZOLE 40 MG VIAL IV SCH ×2 (10:51→21:10)
[2022-05-10] MEDS: PROMETHAZINE INJ 25 MG in SODIUM CHLORIDE 0.9% 50 ML IV SCH ×4 (11:52→23:21)
[2022-05-11] MEDS: MEROPENEM 500 MG in SODIUM CHLORIDE 0.9% 100 ML IV SCH ×4 (03:32→21:07)
[2022-05-11 05:46] LABS: Basophils # 0.1 10*3/uL (0.0-0.2); Basophils % 1.4 % (0.0-0.8); Eosinophils # 0.4 10*3/uL (0.0-0.87); Eosinophils % 11.9 % (0.00-10.9); Hematocrit 31.2 VOL% (35.7-47.0); Hemoglobin 10.8 GM/DL (12.0-16.0); Immature Granulocytes % 0.3 %; Immature Granulocytes Absolute 0.01 #; Mean Corpuscular HGB Conc 34.6 GM/DL (32-36); Mean Corpuscular Volume 95.1 FL (87-102); Mean Platelet Volume 10.5 FL (9.6-12.0); Monocytes # 0.4 10*3/uL (0.11-0.8); Monocytes % 11.1 % (1.7-12.7); Neutrophils % 46.3 % (38.7-73.9); Platelet Count 163 T/CUMM (130-400); Red Blood Count 3.28 MC/CUMM (3.8-5.5); Red Cell Distribution Width 20.5 % (9.3-17.3); White Blood Count 3.5 T/CUMM (4-12)
[2022-05-11 06:12] LABS: Albumin 1.4 G/DL (3.4-5.0); Bilirubin,Total 1.8 MG/DL (0.20-1.00); Calcium 8.2 MG/DL (8.5-10.1); Osmolality,Calculated 276.5 MOS/KG (273-304); Potassium 3.7 MMOL/L (3.5-5.1); Total Protein 4.1 G/DL (6.4-8.2)
[2022-05-11 06:28] LABS: Eosinophils 13 % (0-10); Lymphocytes 18 % (20-55); Platelet Estimate Adequate; Total Cells Counted 100
[2022-05-11] MEDS ORDERED: MAGNESIUM SULF RIDER 2 GM/50 ML PREMIX IV ONE (09:35)
[2022-05-11] MEDS: CLOPIDOGREL 75 MG TABLET PO SCH (09:37)
[2022-05-11] MEDS: COLESTIPOL 1 GM TABLET PO SCH ×2 (09:37→21:07)
[2022-05-11] MEDS: ASPIRIN EC 81 MG TABLET PO SCH (09:37)
[2022-05-11] MEDS: INSULIN LISPRO 100 UNIT/ML SUBCUT SCH ×4 (09:38→21:41)
[2022-05-11] MEDS: PANTOPRAZOLE 40 MG VIAL IV SCH ×2 (09:38→21:08)
[2022-05-11] MEDS: LACTATED RINGERS 1,000 ML IV SCH ×2 (09:39→18:47)
[2022-05-11] MEDS: ENOXAPARIN 40 MG/0.4 ML SYRINGE SUBCUT SCH (22:49)
[2022-05-12] MEDS: LACTATED RINGERS 1,000 ML IV SCH ×2 (02:47→11:36)
[2022-05-12] MEDS: MEROPENEM 500 MG in SODIUM CHLORIDE 0.9% 100 ML IV SCH ×4 (04:32→21:16)
[2022-05-12 06:11] LABS: Basophils # 0.1 10*3/uL (0.0-0.2); Basophils % 1.5 % (0.0-0.8); Eosinophils # 0.5 10*3/uL (0.0-0.87); Eosinophils % 13.3 % (0.00-10.9); Hemoglobin 10.3 GM/DL (12.0-16.0); Immature Granulocytes % 0.3 %; Immature Granulocytes Absolute 0.01 #; Lymphocytes # 1.6 10*3/uL (1.4-4.0); Lymphocytes % 39.5 % (21.3-54.2); Mean Corpuscular HGB Conc 34.3 GM/DL (32-36); Mean Corpuscular Volume 95.2 FL (87-102); Mean Platelet Volume 11.1 FL (9.6-12.0); Monocytes # 0.4 10*3/uL (0.11-0.8); Monocytes % 10.8 % (1.7-12.7); Neutrophils % 34.6 % (38.7-73.9); Platelet Count 167 T/CUMM (130-400); Red Blood Count 3.15 MC/CUMM (3.8-5.5); Red Cell Distribution Width 20.8 % (9.3-17.3)
[2022-05-12 06:34] LABS: Albumin 1.3 G/DL (3.4-5.0); Bilirubin,Total 1.7 MG/DL (0.20-1.00); Osmolality,Calculated 276.4 MOS/KG (273-304); Potassium 3.7 MMOL/L (3.5-5.1); Total Protein 3.8 G/DL (6.4-8.2)
[2022-05-12 06:41] LABS: Eosinophils 20 % (0-10); Lymphocytes 21 % (20-55); Platelet Estimate Adequate; Total Cells Counted 100
[2022-05-12 07:12] LABS: Hepatitis B Core IgM Quant 0.15 Index; Hepatitis B Surface Ag Quant < 0.10 Index; Hepatitis B Surface Ag Result Non-Reactive (NonReactive); Hepatitis C Virus Ab Quant 0.09 Index; Hepatitis C Virus Ab Result Non-Reactive (NonReactive)
[2022-05-12] MEDS: INSULIN LISPRO 100 UNIT/ML SUBCUT SCH ×4 (07:39→20:32)
[2022-05-12 08:22] LABS: Bilirubin,Urine Negative (Negative); Blood, Urine Small mg/dL (Negative); Glucose,Urine (UA) Negative (Negative); Hyaline Casts,Urine 5 /LPF (0-3); Ketones,Urine 5 mg/dL (Negative); Mucus,Urine Occasional /LPF (Occasional); Nitrite,Urine Negative (Negative); Protein,Urine Negative (Negative); Squamous Epithelial Cell,Urine Occasional /HPF (0-10); Urine Appearance CLEAR (Clear); Urine Color Yellow (Yellow); Urine Specific Gravity 1.009 (1.001-1.035); Urine Urobilinogen < 2.0 eU/dL (<2.0)
[2022-05-12] MEDS: COLESTIPOL 1 GM TABLET PO SCH ×2 (09:45→21:16)
[2022-05-12] MEDS: CLOPIDOGREL 75 MG TABLET PO SCH (09:45)
[2022-05-12] MEDS: ASPIRIN EC 81 MG TABLET PO SCH (09:45)
[2022-05-12] MEDS: PANTOPRAZOLE 40 MG VIAL IV SCH ×2 (09:48→21:17)
[2022-05-12] MEDS: ENOXAPARIN 40 MG/0.4 ML SYRINGE SUBCUT SCH (22:50)
[2022-05-13] MEDS: MEROPENEM 500 MG in SODIUM CHLORIDE 0.9% 100 ML IV SCH ×2 (03:58→08:00)
[2022-05-13 05:48] LABS: Basophils # 0.1 10*3/uL (0.0-0.2); Basophils % 1.3 % (0.0-0.8); Eosinophils # 0.5 10*3/uL (0.0-0.87); Eosinophils % 11.3 % (0.00-10.9); Hemoglobin 10.4 GM/DL (12.0-16.0); Immature Granulocytes % 0.5 %; Immature Granulocytes Absolute 0.02 #; Lymphocytes # 1.8 10*3/uL (1.4-4.0); Mean Corpuscular HGB Conc 34.7 GM/DL (32-36); Mean Corpuscular Volume 94.6 FL (87-102); Mean Platelet Volume 10.8 FL (9.6-12.0); Monocytes # 0.4 10*3/uL (0.11-0.8); Neutrophils % 30.9 % (38.7-73.9); Platelet Count 158 T/CUMM (130-400); Red Blood Count 3.17 MC/CUMM (3.8-5.5); Red Cell Distribution Width 20.5 % (9.3-17.3)
[2022-05-13 06:15] LABS: Eosinophils 12 % (0-10); Lymphocytes 27 % (20-55); Total Cells Counted 100
[2022-05-13 06:16] LABS: Platelet Estimate Adequate
[2022-05-13 06:20] LABS: Albumin 1.1 G/DL (3.4-5.0); Bilirubin,Total 1.7 MG/DL (0.20-1.00); Calcium 7.8 MG/DL (8.5-10.1); Osmolality,Calculated 279.3 MOS/KG (273-304); Potassium 3.6 MMOL/L (3.5-5.1); Total Protein 3.7 G/DL (6.4-8.2)
[2022-05-13] MEDS: LACTATED RINGERS 1,000 ML IV SCH ×2 (07:55→08:31)
[2022-05-13] MEDS: INSULIN LISPRO 100 UNIT/ML SUBCUT SCH ×4 (07:56→20:34)
[2022-05-13] MEDS: CLOPIDOGREL 75 MG TABLET PO SCH (08:01)
[2022-05-13] MEDS: COLESTIPOL 1 GM TABLET PO SCH ×2 (08:01→21:24)
[2022-05-13] MEDS: PANTOPRAZOLE 40 MG VIAL IV SCH (08:01)
[2022-05-13] MEDS: ASPIRIN EC 81 MG TABLET PO SCH (08:01)
[2022-05-13] MEDS ORDERED: MAGNESIUM SULF RIDER 2 GM/50 ML PREMIX IV ONE (10:48)
[2022-05-13] MEDS ORDERED: MIRTAZAPINE 15 MG TABLET PO SCH (21:00)
[2022-05-13] MEDS: ONDANSETRON 4 MG/2 ML VIAL IV PRN (21:24)
[2022-05-13] MEDS: DOCUSATE SODIUM 100 MG CAPSULE PO SCH (21:25)
[2022-05-13] MEDS: FERROUS SULFATE 325 MG TABLET PO SCH (21:25)
[2022-05-13] MEDS: PANTOPRAZOLE 40 MG TABLET PO SCH (21:25)
[2022-05-13] MEDS: CEFUROXIME 500 MG TABLET PO SCH (21:25)
[2022-05-13] MEDS: ENOXAPARIN 40 MG/0.4 ML SYRINGE SUBCUT SCH (23:29)
[2022-05-14 06:00] LABS: Basophils # 0.1 10*3/uL (0.0-0.2); Basophils % 1.7 % (0.0-0.8); Eosinophils # 0.3 10*3/uL (0.0-0.87); Eosinophils % 8.3 % (0.00-10.9); Hematocrit 33.5 VOL% (35.7-47.0); Hemoglobin 11.4 GM/DL (12.0-16.0); Immature Granulocytes % 0.7 %; Immature Granulocytes Absolute 0.03 #; Lymphocytes # 1.7 10*3/uL (1.4-4.0); Lymphocytes % 40.6 % (21.3-54.2); Mean Corpuscular Volume 96.5 FL (87-102); Mean Platelet Volume 10.7 FL (9.6-12.0); Monocytes # 0.5 10*3/uL (0.11-0.8); Monocytes % 11.9 % (1.7-12.7); Neutrophils % 36.8 % (38.7-73.9); Platelet Count 175 T/CUMM (130-400); Red Blood Count 3.47 MC/CUMM (3.8-5.5); Red Cell Distribution Width 20.6 % (9.3-17.3); White Blood Count 4.1 T/CUMM (4-12)
[2022-05-14 06:20] LABS: Calcium 8.1 MG/DL (8.5-10.1); Osmolality,Calculated 275.5 MOS/KG (273-304)
[2022-05-14 06:47] LABS: Eosinophils 8 % (0-10); Lymphocytes 36 % (20-55); Platelet Estimate Adequate; Total Cells Counted 100
[2022-05-14] MEDS ORDERED: HYDROXYCHLOROQUINE 200 MG TABLET PO SCH (09:00)
[2022-05-14] MEDS ORDERED: POLYETHYLENE GLYCOL POWDER 17 GM PACK PO SCH (09:00)
[2022-05-14] MEDS: FERROUS SULFATE 325 MG TABLET PO SCH (10:03)
[2022-05-14] MEDS: CEFUROXIME 500 MG TABLET PO SCH (10:03)
[2022-05-14] MEDS: COLESTIPOL 1 GM TABLET PO SCH (10:03)
[2022-05-14] MEDS: ASPIRIN EC 81 MG TABLET PO SCH (10:03)
[2022-05-14] MEDS: DOCUSATE SODIUM 100 MG CAPSULE PO SCH (10:03)
[2022-05-14] MEDS: PANTOPRAZOLE 40 MG TABLET PO SCH (10:04)
[2022-05-14] MEDS: CLOPIDOGREL 75 MG TABLET PO SCH (10:04)
[2022-05-14] MEDS: ONDANSETRON 4 MG/2 ML VIAL IV PRN (10:10)
[2022-05-14 11:12] LABS: Albumin 1.2 G/DL (3.4-5.0); Bilirubin,Direct 1.32 MG/DL (0.0-0.20); Bilirubin,Indirect 0.5 MG/DL (0.0-1.0); Bilirubin,Total 1.8 MG/DL (0.20-1.00); Total Protein 4.1 G/DL (6.4-8.2)
[2022-05-14 15:50] VITALS: BP 97/76
[2022-05-14] MEDS: INSULIN LISPRO 100 UNIT/ML SUBCUT SCH (15:59)
[2022-05-14] MEDS ORDERED: MCT OIL PO SCH (21:00)
== END 2022-05-14 16:00 | disposition swing bed (61) | DRG 690 ==
LOC: EDBD → EDUNIT# → N.ED 19:27 → SUATTDRO 23:42 → N.EDINP 23:42 → N.TELEN 05-08 19:47
PROVIDERS: ADMIT Internal Medicine; ATTEND Internal Medicine